=== PATIENT | female | born 1940 | race Caucasian/White ===

== ENCOUNTER 2016-08-23 09:17 | Emergency (ER) | payer OTHER ==
[~2016-08-23] VITALS: Ht 165.1 cm; Wt 54.7 kg
[~2016-08-23 09:17] MED LIST: ALBU8.5H3 INH; CHLO500T; CORTISONE INJECTION; FLUT1DIS3 INH; FURO-93 PO; IBAN3DIS2; TIOT18CA INH
[2016-08-23 09:52] VITALS: BP 129/71
[2016-08-23] MEDS ORDERED: AMOX1TAB64 PO (10:01)
== END 2016-08-23 11:38 | disposition home or self-care (01) ==
LOC: ED 11:29
DX: R09.02 Hypoxemia (principal); L03.116 Cellulitis of left lower limb; Z88.0 Allergy status to penicillin; Z88.6 Allergy status to analgesic agent
CPT/HCPCS: 99283

== ENCOUNTER → 2016-09-13 | Outpatient (CLI) | payer MEDICARE, OTHER ==
[~2016-09-13] MED LIST changes: +AMOX1TAB64 PO
== END | disposition home or self-care (01) ==
LOC: CFH 15:30
PROVIDERS: ATTEND Internal Medicine
DX: J47.9 Bronchiectasis, uncomplicated (principal); J43.2 Centrilobular emphysema; J92.9 Pleural plaque without asbestos
CPT/HCPCS: 71250

== ENCOUNTER 2016-11-17 09:11 | Emergency (ER) | payer MEDICARE, OTHER ==
[~2016-11-17] VITALS: Ht 165.1 cm; Wt 52.3 kg
[~2016-11-17 09:11] MED LIST changes: -ALBU8.5H3 INH; +ALBU8.5H8 INH
[2016-11-17 09:12] VITALS: BP 102/72
== END 2016-11-17 11:07 | disposition home or self-care (01) ==
LOC: ED 09:31
DX: S93.601A Unspecified sprain of right foot, initial encounter (principal); K21.9 Gastro-esophageal reflux disease without esophagitis; M19.90 Unspecified osteoarthritis, unspecified site; W21.31XA Struck by shoe cleats, initial encounter; Y93.89 Activity, other specified; Y92.009 Unspecified place in unspecified non-institutional (private) residence as the place of occurrence of the external cause; Y99.9 Unspecified external cause status
CPT/HCPCS: 99284